=== PATIENT | female | born 1980 ===

== ENCOUNTER 2019-02-27 12:56 | Emergency (ER) | payer MEDICAID ==
[2019-02-27 18:16] VITALS: BP 126/76; PULSE 96
== END 2019-02-27 14:10 | disposition home or self-care (01) ==
LOC: H.EROB2 12:56 → H.L&D 13:50 → H.EROB2 14:10
DX: O26.92 Pregnancy related conditions, unspecified, second trimester (principal); R10.2 Pelvic and perineal pain; K59.00 Constipation, unspecified; Z3A.20 20 weeks gestation of pregnancy